=== PATIENT | female | born 1980 | race Caucasian/White ===

== ENCOUNTER 2016-12-10 06:46 | Emergency (ER) | payer OTHER ==
[~2016-12-10] VITALS: Ht 162.6 cm; Wt 86.5 kg
[2016-12-10 07:16] VITALS: BP 140/83; PULSE 99; RESP 18; TEMP 98.6; O2SAT 99
[2016-12-10 07:32] LABS: AUTOMATED NEUTROPHIL # 7.9 TH/MM3 (1.8-7.7); BASOPHIL # 0.2 TH/MM3 (0-0.2); BASOPHIL % 1.5 % (0.0-2.0); EOSINOPHIL # 0.1 TH/MM3 (0-0.4); EOSINOPHIL % 0.4 % (0.0-4.0); HEMATOCRIT 41.5 % (35.0-46.0); HEMO FLAGS DIFF FINAL; LYMPH % 23.6 % (9.0-44.0); LYMPHOCYTE # 2.7 TH/MM3 (1.0-4.8); MEAN CORPUSCULAR HGB CONC 34.1 % (32.0-36.0); MONO % 5.4 % (0.0-8.0); NEUT % 69.1 % (16.0-70.0); PLATELET COUNT 294 TH/MM3 (150-450); RED BLOOD COUNT 4.72 MIL/MM3 (4.00-5.30); RED CELL DISTRIBUTION WIDTH 13.7 % (11.6-17.2); WHITE BLOOD COUNT 11.5 TH/MM3 (4.0-11.0)
[2016-12-10 07:50] LABS: ANION GAP 8 MEQ/L (5-15); AST (GOT) 15 U/L (15-37); BICARBONATE 26.1 MEQ/L (21.0-32.0); BLOOD UREA NITROGEN 11 MG/DL (7-18); CHLORIDE 107 MEQ/L (98-107); GLOMERULAR FILTRATION RATE 91 ML/MIN (>89); POTASSIUM 4.5 MEQ/L (3.5-5.1); SODIUM (NA) 141 MEQ/L (136-145)
[2016-12-10 07:52] LABS: ALCOHOL 54 MG/DL (0-5)
[2016-12-10 07:53] LABS: ALKALINE PHOSPHATASE 72 U/L (45-117); ALT (GPT) 24 U/L (10-53); TOTAL BILIRUBIN ADULT 0.2 MG/DL (0.2-1.0)
--- NOTE | 2016-12-10 08:00 | PD ---
HPI Chief Complaint: Psychiatric Symptoms Time Seen by Provider: 07:35 Travel History International Travel<30 days: No Contact w/Intl Traveler<30days: No Traveled to known affect area: No History of Present Illness HPI 36-year-old female presents to the emergency department under Garcia act. According to law enforcement reported the patient cut herself on her right forearm and told her friends investigate attention, but according to her friends she was making comments of findings and things early yesterday. The patient reports she did self cut yesterday or last night sometime. She denies suicidal or homicidal ideations. Denies visual or auditory hallucinations. Reports tobacco use. Reports alcohol use. Says she drank an excessive amount of alcohol last night. Says she feels hung over and has a headache. Denies nausea, vomiting. Reports being susceptible to UTIs. Denies being up-to-date on her tetanus vaccination. She has no emergent medical complaints. Allergies to penicillin. No other medical complaints. No other modifying factors or associated signs and symptoms. PFSH Past Medical History Depression: Yes Tetanus Vaccination: Unknown ?: Not LMP: 2 weeks ago Social History Alcohol Use: Yes Tobacco Use: Yes Allergies-Medications (Allergen,Severity, Reaction): Coded Allergies: Penicillin (Verified Allergy, Severe, 12/10/16) Reported Meds & Prescriptions Reported Meds & Active Scripts Active No Active Prescriptions or Reported Medications Review of Systems Except as stated in HPI: all other systems reviewed are Neg Physical Exam Narrative GENERAL: Well-nourished, well-developed female patient, in no acute distress SKIN: Warm and dry. HEAD: Atraumatic. Normocephalic. EYES: Pupils equal and round. ENT: Mucosa pink and moist. NECK: Supple. Trachea midline. CARDIOVASCULAR: Regular rate and rhythm. No murmur appreciated. RESPIRATORY: No accessory muscle use. Clear to auscultation. Breath sounds equal bilaterally. GASTROINTESTINAL: Abdomen soft, non-tender, nondistended. Hepatic and splenic margins not palpable. Bowel sounds are active 4 quadrants. MUSCULOSKELETAL: No obvious deformities. No clubbing. No cyanosis. No edema. BACK: No CVA tenderness. NEUROLOGICAL: Awake and alert. Oriented 3. No obvious cranial nerve deficits. Motor grossly within normal limits. Normal speech. Moves all extremities. 5/5 strength to all extremities. PSYCHIATRIC: No delusional thought processes. No hallucinations. Data Data Last Documented VS Vital Signs Date Time Temp Pulse Resp B/P Pulse Ox O2 Delivery O2 Flow Rate FiO2 12/10/16 12:15 99.0 89 18 131/90 97 Room Air Orders Complete Blood Count With Diff (12/10/16 06:54) Comprehensive Metabolic Panel (12/10/16 06:54) Ed Urine Pregnancytest Poc (12/10/16 06:54) Psych Screen (12/10/16 06:54) Drug Screen, Random Urine (12/10/16 06:54) Alcohol (Ethanol) (12/10/16 06:54) Salicylates (Aspirin) (12/10/16 06:54) Tylenol (Acetaminophen) (12/10/16 06:54) Diet Regular Basic (12/10/16 Breakfast) Urinalysis - C+S If Indicated (12/10/16 07:45) Wound Care (12/10/16 08:10) Ibuprofen (Motrin) (12/10/16 08:15) Tetanus/Diphtheria Tox Adult (Tetanus/Di (12/10/16 08:15) Diet Regular Basic (12/10/16 Lunch) Labs Laboratory Tests Test 12/10/16 07:11 White Blood Count 11.5 TH/MM3 Red Blood Count 4.72 MIL/MM3 Hemoglobin 14.1 GM/DL Hematocrit 41.5 % Mean Corpuscular Volume 88.0 FL Mean Corpuscular Hemoglobin 30.0 PG Mean Corpuscular Hemoglobin 34.1 % Concent Red Cell Distribution Width 13.7 % Platelet Count 294 TH/MM3 Mean Platelet Volume 8.6 FL Neutrophils (%) (Auto) 69.1 % Lymphocytes (%) (Auto) 23.6 % Monocytes (%) (Auto) 5.4 % Eosinophils (%) (Auto) 0.4 % Basophils (%) (Auto) 1.5 % Neutrophils # (Auto) 7.9 TH/MM3 Lymphocytes # (Auto) 2.7 TH/MM3 Monocytes # (Auto) 0.6 TH/MM3 Eosinophils # (Auto) 0.1 TH/MM3 Basophils # (Auto) 0.2 TH/MM3 CBC Comment DIFF FINAL Differential Comment Urine Color LIGHT-YELLOW Urine Turbidity CLEAR Urine pH 6.0 Urine Specific [place] 1.008 Urine Protein NEG mg/dL Urine Glucose (UA) NEG mg/dL Urine Ketones NEG mg/dL Urine Occult Blood NEG Urine Nitrite NEG Urine Bilirubin NEG Urine Urobilinogen LESS THAN 2.0 MG/DL Urine Leukocyte Esterase TRACE Urine RBC 1 /hpf Urine WBC LESS THAN 1 /hpf Urine Squamous Epithelial 2 /hpf Cells Urine Bacteria OCC /hpf Urine Mucus FEW /lpf Microscopic Urinalysis Comment CULT NOT INDICATED Sodium Level 141 MEQ/L Potassium Level 4.5 MEQ/L Chloride Level 107 MEQ/L Carbon Dioxide Level 26.1 MEQ/L Anion Gap 8 MEQ/L Blood Urea Nitrogen 11 MG/DL Creatinine 0.72 MG/DL Estimat Glomerular Filtration 91 ML/MIN Rate Random Glucose 91 MG/DL Calcium Level 8.9 MG/DL Total Bilirubin 0.2 MG/DL Aspartate Amino Transf 15 U/L (AST/SGOT) Alanine Aminotransferase 24 U/L (ALT/SGPT) Alkaline Phosphatase 72 U/L Total Protein 7.9 GM/DL Albumin 3.9 GM/DL Salicylates Level 4.2 MG/DL Urine Opiates Screen NEG Acetaminophen Level LESS THAN 2.0 MCG/ML Urine Barbiturates Screen NEG Urine Amphetamines Screen NEG Urine Benzodiazepines Screen NEG Urine Cocaine Screen NEG Urine Cannabinoids Screen NEG Ethyl Alcohol Level 54 MG/DL [facility] Medical Decision Making Medical Screen Exam Complete: Yes Emergency Medical Condition: Yes Medical Record Reviewed: Yes Differential Diagnosis Medical clearance for psychiatric admission, suicidal threat, suicidal attempt Narrative Course Tetanus updated in the ER. Ibuprofen administered in the ER. Wound care provided. Patient presents under a Garcia act. Physical examination and vital signs are essentially unremarkable. Patient has no medical complaints to report. Psych screen has been ordered. If the laboratory results are unremarkable, the patient will be medically cleared for psychiatric evaluation and disposition. Diagnosis Primary Impression: Medical clearance for psychiatric admission Scripts No Active Prescriptions or Reported Meds Condition: Stable Ruchi Bermeo [employer] Dec 10, 2016 08:00
[2016-12-10 08:11] LABS: ACETAMINOPHEN LESS THAN 2.0 MCG/ML (10.0-30.0)
[2016-12-10] MEDS ORDERED: IBUPROFEN 800 MG TAB PO ONE (08:15)
[2016-12-10] MEDS ORDERED: TETANUS/DIPHTHERIA TOXOID ADULT 0.5 ML VIAL IM ONE (08:15)
[2016-12-10 09:47] LABS: BACTERIA, URINE OCC /hpf; BLOOD, URINE NEG (NEG); COMMENT (UR) CULT NOT INDICATED; CULTURE IF INDICATED CULT NOT INDICATED; GLUCOSE,URINE NEG (NEG); KETONE, URINE NEG (NEG); MUCUS URINE FEW /lpf (OCC); NITRITE,URINE NEG (NEG); SQUAMOUS EPITHELIAL CELL URINE 2 /hpf (0-5); URINE COLOR LIGHT-YELLOW (YELLW/STRAW)
[2016-12-10 12:15] VITALS: BP 131/90; PULSE 89; RESP 18; TEMP 99; O2SAT 97
[2016-12-10 18:45] VITALS: BP 121/73; PULSE 73; RESP 18
[2016-12-11 02:06] VITALS: BP 134/89; PULSE 79; RESP 20; TEMP 99.4; O2SAT 95
[2016-12-11 06:25] VITALS: BP 120/74; PULSE 63; RESP 18; TEMP 99.4; O2SAT 97
--- NOTE | 2016-12-11 09:03 | PD ---
History of Present Illness Chief Complaint: Psychiatric Symptoms Time Seen by Provider: 08:35 Travel History International Travel<30 Days: No Contact w/Intl Traveler<30days: No Known affected area: No Legal Status Legal Status: Garcia Act Garcia Act Signed By: Bill Bagley Garcia Act Comment: Signed by [employer] Officer Luigi Rosales/ID #[id number] History of Present Illness: International Travel<30 days: No Contact w/Intl Traveler<30days: No Traveled to known affect area: No History of Present Illness HPI 36-year-old female with reported history of bipolar disorder who presents to the emergency department under Garcia act initiated by JUDSON. The report states that the patient had a mental outburst in the morning and cut herself on her right forearm. It is alleged that she had told her friends yesterday that she was going to kill herself and get it over with. The patient reports she cut herself yesterday or last night sometime. As per ed documentation " She denies suicidal or homicidal ideations. Denies visual or auditory hallucinations. Reports tobacco use. Reports alcohol use. Says she drank an excessive amount of alcohol last night. Says she feels hung over and has a headache" . Patient was monitored in [facility] and she exhibited no behavioral concerns and no suicidality. EMR is reviewed and she has had no previous contact with [facility] psychiatry dept. Bal on arrival to ED was 54. Toxicology is negative. Patient is seen with Elle GONZALEZ. She is awake, alert and oriented. Dressed in [facility]. Poorly groomed. Appears stated age. She is clinically sober. Speech is clear and logical. There is no indication of any psychosis, no iraida. She denies current depression or anxiety, denies suicidal or homicidal ideation, intent or plan. She states " I was drunk and stupid " when asked regarding events leading to being placed under a BA. I" I was arguing with a friend and I didn't think I did much harm". Patient reports a hx of cutting herself but has not engaged in the behavior in a long time. She is currently not in psychiatric treatment and expresses no interest in beginning any treatment at this time. [employer] Past Medical History Depression: Yes Tetanus Vaccination: Unknown ?: Not LMP: 2 weeks ago Psychiatric History Psychiatric History Hx Psychiatric Treatment: Hx Bipolar/Iraida/Depression/Anxiety per pt. "I have been on meds before." Patient stated that she can only remember Depakote, Zoloft, and Adderall. She estimates last treated May or June of this year. History of Inpatient Treatment: No Guns or firearms in home: No Social History Single, unemployed. Lives with a friend and she helps care for the children. She has five children but does not have frequent contact with them. Hx Alcohol Use: Yes (Denies drinking on a daily basis.) Hx Tobacco Use: Yes Hx Substance Use: No (Recent increase ETOH use; Patient denies abuse of anything. ) Substance Use Type: Alcohol Hx of Substance Use Treatment: No Family Psychiatric History Negative Allergies-Medications (Allergen,Severity, Reaction): Coded Allergies: Penicillin (Verified Allergy, Severe, 12/10/16) Reported Meds & Prescriptions Reported Meds & Active Scripts Active No Active Prescriptions or Reported Medications Review of Systems Except as stated in HPI: all other systems reviewed are Neg Exam Alert: Yes [place]: Person (ox4) Mood: Calm Affect: Appropriate Speech: Clear, Logical Eye Contact: Indirect Memory Intact: Comment (No gross abnormality) Hallucinations: Other (negative) Delusions: No Suicidal: Ideation (denies any) Homicidal: Ideation (deneis any) Insight/Judgement Fair. not impaired. MDM Medical Decision Making Medical Record Reviewed: Yes Assessment/Plan 36-year-old female with reported history of bipolar disorder who presents to the emergency department under Garcia act initiated by JUDSON. The report states that the patient had a mental outburst in the morning and cut herself on her right forearm. Patient denies that this was a suicide attempt and presents no indication that she was suicidal at the time. The incident happened in context of an argument and involved alcohol as well. A t this time the patient is not presenting any criteria for BA. She denies suicidality. She is not interested in seeking psychiatric treatment. The BA will be lifted. Discharge home. Orders Diet Regular Basic (12/10/16 Lunch) Diet Regular Basic (12/10/16 Dinner) Diet Regular Basic (12/11/16 Breakfast) Results Vital Signs Date Time Temp Pulse Resp B/P Pulse Ox O2 Delivery O2 Flow Rate FiO2 12/11/16 06:25 99.4 63 18 120/74 97 12/11/16 02:06 99.4 79 20 134/89 95 Room Air 12/10/16 18:45 73 18 121/73 Room Air 12/10/16 12:15 99.0 89 18 131/90 97 Room Air Diagnosis Primary Impression: Medical clearance for psychiatric admission Additional Impression: Alcohol intoxication Psychiatrically Cleared: Yes Med/ Other Pt Specific Info: No Meds Exist/No RX given Prescriptions No Active Prescriptions or Reported Meds Disposition: 01 DISCHARGE HOME Condition: Stable Problem Qualifiers Additional Impression: Alcohol intoxication Qualified Code: F10.920 - Alcoholic intoxication without complication Imani Mejia Dec 11, 2016 09:03
[2016-12-11 09:28] VITALS: BP 120/74; TEMP 99.4
== END 2016-12-11 09:49 | disposition home or self-care (01) ==
LOC: NEPD 06:46 → NEPJ 12-11 09:49
DX: F10.920 Alcohol use, unspecified with intoxication, uncomplicated (principal); R51 Headache; F31.9 Bipolar disorder, unspecified; Y90.2 Blood alcohol level of 40-59 mg/100 ml; Z72.0 Tobacco use; Z23 Encounter for immunization
CPT/HCPCS: 80053; 80307; 81001; 84703; 85025; 90471; 90714